=== PATIENT | female | born 2000 | race African-American/Black ===

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

== ENCOUNTER 2019-07-25 12:03 | Emergency (ER) | payer MEDICAID, OTHER ==
[~2019-07-25] VITALS: Ht 162.6 cm; Wt 59.0 kg
[2019-07-25] MEDS ORDERED: ACETAMINOPHEN 325MG TABLET PO ONE (16:00)
[2019-07-25] MEDS: KETOROLAC 30MG/ML VIAL IM ONE ×2 (16:58→18:15)
[2019-07-25 17:15] LABS: CLARITY URINE CLOUDY (CLEAR); COLOR URINE YELLOW (YELLOW); KETONES URINE 1+ (NEGATIVE); LEUKOCYTE ESTERASE URINE NEGATIVE (NEGATIVE); NITRITE URINE NEGATIVE (NEGATIVE); OCCULT BLOOD URINE NEGATIVE (NEGATIVE); PH URINE 5.5 (4.5-8.0); PROTEIN URINE NEGATIVE (NEGATIVE); UROBILINOGEN URINE 0.2 E.U./dL (0.2-1.0)
[2019-07-25] MEDS ORDERED: OSELTAMIVIR 75MG CAPSULE PO ONE (17:45)
[2019-07-25 18:21] VITALS: BP 115/57
== END 2019-07-25 18:24 | disposition home or self-care (01) ==
LOC: ER 12:03
DX: J10.1 Influenza due to other identified influenza virus with other respiratory manifestations (principal)
CPT/HCPCS: 71045; 81003; 81025; 87070; 87430; 87804; 96372; 99284; J1885

== ENCOUNTER 2019-10-05 21:03 | Inpatient (IN) | payer MEDICAID ==
[~2019-10-05] VITALS: Ht 160 cm; Wt 57.6 kg
[2019-10-05] MEDS ORDERED: ONDANSETRON HCL 4MG/2ML INJ IV STA (23:00)
[2019-10-05] MEDS ORDERED: MORPHINE SULFATE 4 MG/ML CPJ (NOT FOR IM USE) IV STA (23:00)
[2019-10-05 23:17] LABS: BASOPHILS % 0.1 % (0.0-2.0); HEMATOCRIT. 37.1 % (36.0-48.0); HEMOGLOBIN. 11.9 g/dL (12.0-16.0); LYMPHOCYTES % 11.5 % (20.0-50.0); MEAN CORPUSCULAR HEMOGLOBIN 22.9 pg (28.0-32.0); MEAN CORPUSCULAR VOLUME 71.7 fL (81.0-99.0); NEUTROPHILS % 84.4 % (40.0-76.0); PLATELET 323 x1000/uL (130-400); RED BLOOD CELL COUNT 5.17 mill/uL (4.2-5.4); RED CELL DISTRIBUTION WIDTH 15.1 % (11.6-14.6)
[2019-10-05 23:23] LABS: CHLORIDE 104 mEq/L (98-107)
[2019-10-05 23:27] LABS: CLARITY URINE CLOUDY (CLEAR); COLOR URINE YELLOW (YELLOW); KETONES URINE 3+ (NEGATIVE); LEUKOCYTE ESTERASE URINE NEGATIVE (NEGATIVE); NITRITE URINE NEGATIVE (NEGATIVE); OCCULT BLOOD URINE NEGATIVE (NEGATIVE); PROTEIN URINE TRACE (NEGATIVE); SPECIFIC GRAVITY URINE 1.029 (1.005-1.030); UROBILINOGEN URINE 0.2 E.U./dL (0.2-1.0)
[2019-10-06] MEDS ORDERED: MORPHINE SULFATE 4 MG/ML CPJ (NOT FOR IM USE) IV SCH (01:15)
[2019-10-06] MEDS ORDERED: KETOROLAC 30MG/ML VIAL IV ONE (02:15)
[2019-10-06] MEDS ORDERED: CEFAZOLIN 1000MG PREMIX 50 ML IV SCH (02:44)
[2019-10-06] MEDS ORDERED: IOHEXOL-300 100 ML BOTTLE ONE (03:04)
[2019-10-06] MEDS: LACTATED RINGERS 1,000 ML IV SCH ×3 (04:00→22:34)
[2019-10-06] MEDS ORDERED: MIDAZOLAM HCL 2 MG/2 ML VIAL ONE (06:04)
[2019-10-06] MEDS ORDERED: ROCURONIUM BROMIDE 10MG/ML VIAL 5ML IV ONE (06:04)
[2019-10-06] MEDS ORDERED: NEOSTIGMINE METHYLSULFATE 1MG/ML 10 ML VIAL ONE (06:04)
[2019-10-06] MEDS ORDERED: GLYCOPYRROLATE 0.2 MG/ML 2ML VIAL ONE (06:04)
[2019-10-06] MEDS ORDERED: FENTANYL CITRATE/PF 50MCG/ML 2ML VIAL ONE ×2 (06:04→07:16)
[2019-10-06] MEDS ORDERED: PROPOFOL 200MG/20ML VIAL IV ONE (06:04)
[2019-10-06] MEDS ORDERED: MEPERIDINE HCL/PF 25MG/ML CPJ IV PRN (06:45)
[2019-10-06] MEDS ORDERED: LABETALOL 5MG/ML SYR 20 MG/4 ML SYRINGE IV PRN (06:45)
[2019-10-06] MEDS ORDERED: HYDROMORPHONE HCL/PF 2MG/ML CPJ IV PRN ×2 (06:45→08:00)
[2019-10-06] MEDS ORDERED: ONDANSETRON HCL 4MG/2ML INJ IV PRN ×2 (06:45→09:15)
[2019-10-06] MEDS ORDERED: DEXAMETHASONE 4MG/ML 1ML VIAL ONE (07:15)
[2019-10-06] MEDS ORDERED: SKIN ADHESIVE 0.7 GM EA TOP ONE (07:27)
[2019-10-06 09:30] VITALS: BP 132/69
[2019-10-06] MEDS: MORPHINE SULFATE 4 MG/ML CPJ (NOT FOR IM USE) IV PRN ×2 (09:55→19:32)
[2019-10-06 12:00] VITALS: BP 102/56
[2019-10-06] MEDS ORDERED: INFLUENZA VIRUS VACCINE(AFLURIA) 0.5ML SYR IM ONE (15:00)
[2019-10-06 16:00] VITALS: BP 119/62
[2019-10-06 20:00] VITALS: BP 108/52
[2019-10-06] MEDS: HYDROCODONE/ACETAMINOPHEN 5/325MG TABLET PO PRN (22:33)
[2019-10-07] VITALS: BP 97/55
[2019-10-07 04:00] VITALS: BP 111/49
[2019-10-07] MEDS: MORPHINE SULFATE 4 MG/ML CPJ (NOT FOR IM USE) IV PRN (04:21)
[2019-10-07] MEDS: LACTATED RINGERS 1,000 ML IV SCH ×3 (04:25→21:45)
[2019-10-07] MEDS ORDERED: LACTATED RINGERS 1,000 ML IV SCH (05:00)
[2019-10-07] MEDS ORDERED: ALBUTEROL (0.5%) 2.5MG/0.5ML NEB HHN PRN (06:00)
[2019-10-07 07:20] LABS: BASOPHILS % 0.1 % (0.0-2.0); EOSINOPHILS % 0.4 % (0.0-5.0); HEMATOCRIT. 26.2 % (36.0-48.0); HEMOGLOBIN. 8.3 g/dL (12.0-16.0); LYMPHOCYTES % 21.9 % (20.0-50.0); MEAN CORPUSCULAR HEMOGLOBIN 22.8 pg (28.0-32.0); MEAN CORPUSCULAR VOLUME 71.5 fL (81.0-99.0); MEAN PLATELET VOLUME 8.4 fl (7.4-10.4); MONOCYTES % 8.1 % (2.0-8.0); NEUTROPHILS % 69.5 % (40.0-76.0); PLATELET 197 x1000/uL (130-400); RED BLOOD CELL COUNT 3.66 mill/uL (4.2-5.4)
[2019-10-07 08:00] VITALS: BP 112/52
[2019-10-07 12:00] VITALS: BP 113/58
[2019-10-07] MEDS: HYDROCODONE/ACETAMINOPHEN 5/325MG TABLET PO PRN ×3 (13:22→21:32)
[2019-10-07] MEDS: ALBUTEROL (0.083%) 2.5MG/3ML NEB HHN PRN ×2 (15:42→21:56)
[2019-10-07 16:00] VITALS: BP_SYST 101; BP_SYST 122; BP_DIAS 57; BP_DIAS 59
[2019-10-07 20:00] VITALS: BP 123/60
[2019-10-08] VITALS: BP 112/62
[2019-10-08 04:00] VITALS: BP 124/71
[2019-10-08] MEDS: LACTATED RINGERS 1,000 ML IV SCH ×2 (04:49→22:13)
[2019-10-08] MEDS: HYDROCODONE/ACETAMINOPHEN 5/325MG TABLET PO PRN ×4 (05:17→22:12)
[2019-10-08 08:00] VITALS: BP 114/61
[2019-10-08 12:00] VITALS: BP 112/72
[2019-10-08 16:00] VITALS: BP 115/59
[2019-10-08 20:00] VITALS: BP 109/52
[2019-10-09] VITALS: BP 106/52
[2019-10-09] MEDS: ACETAMINOPHEN 325MG TABLET PO PRN ×3 (01:08→12:47)
[2019-10-09 04:00] VITALS: BP 110/58
[2019-10-09] MEDS ORDERED: GUAIFENESIN/CODEINE 100-10MG/5ML UDC PO PRN (06:30)
[2019-10-09] MEDS ORDERED: LACTATED RINGERS 1,000 ML IV SCH (06:30)
[2019-10-09 08:00] VITALS: BP 108/59
[2019-10-09] MEDS: OSELTAMIVIR 75MG CAPSULE PO SCH ×2 (08:21→21:07)
[2019-10-09 10:10] LABS: BASOPHILS % 0.3 % (0.0-2.0); EOSINOPHILS % 0.1 % (0.0-5.0); HEMATOCRIT. 28.6 % (36.0-48.0); HEMOGLOBIN. 9.3 g/dL (12.0-16.0); LYMPHOCYTES % 7.1 % (20.0-50.0); MEAN CORPUSCULAR HEMOGLOBIN 23.4 pg (28.0-32.0); MEAN CORPUSCULAR VOLUME 71.6 fL (81.0-99.0); MEAN PLATELET VOLUME 8.6 fl (7.4-10.4); MONOCYTES % 7.4 % (2.0-8.0); NEUTROPHILS % 85.1 % (40.0-76.0); PLATELET 215 x1000/uL (130-400); RED BLOOD CELL COUNT 3.99 mill/uL (4.2-5.4); RED CELL DISTRIBUTION WIDTH 14.6 % (11.6-14.6)
[2019-10-09] MEDS: LACTATED RINGERS 1,000 ML IV SCH (11:27)
[2019-10-09 12:00] VITALS: BP 119/69
[2019-10-09 16:00] VITALS: BP 122/66
[2019-10-09] MEDS: HYDROCODONE/ACETAMINOPHEN 5/325MG TABLET PO PRN (19:17)
[2019-10-09 20:00] VITALS: BP 129/70
[2019-10-09] MEDS: GUAIFENESIN/CODEINE 200-20MG/10ML UDC PO PRN (21:08)
[2019-10-10] VITALS: BP 122/70
[2019-10-10 04:00] VITALS: BP 123/70
[2019-10-10] MEDS ORDERED: FERR325T6 MT (07:35)
[2019-10-10] MEDS ORDERED: ALBU2.5V13 HHN (07:35)
[2019-10-10] MEDS ORDERED: MULT-1116 MT (07:35)
[2019-10-10] MEDS ORDERED: IBUP-2030 MT (07:35)
[2019-10-10 07:55] VITALS: BP 121/80
[2019-10-10] MEDS: OSELTAMIVIR 75MG CAPSULE PO SCH (08:42)
[2019-10-10] MEDS: ACETAMINOPHEN 325MG TABLET PO PRN (08:42)
[2019-10-10] MEDS: GUAIFENESIN/CODEINE 200-20MG/10ML UDC PO PRN (09:46)
[2019-10-10 10:47] VITALS: BP 121/80
[2019-10-10] MEDS: HYDROCODONE/ACETAMINOPHEN 5/325MG TABLET PO PRN (10:47)
== END 2019-10-10 11:45 | disposition home or self-care (01) | DRG 513 ==
LOC: ER 21:03 → 6EST 10-06 03:20 → SUPCPDRO 10-06 03:32 → ENRESERV 10-06 07:29
PROVIDERS: ADMIT Obstetrics & Gynecology; ATTEND Obstetrics & Gynecology
PROC: 0UB10ZZ Excision of Left Ovary, Open Approach (ICD-10-PCS; principal; 2019-10-06)
PROC: 0UT00ZZ Resection of Right Ovary, Open Approach (ICD-10-PCS; 2019-10-06)
PROC: 0UT50ZZ Resection of Right Fallopian Tube, Open Approach (ICD-10-PCS; 2019-10-06)
DX: N83.53 Torsion of ovary, ovarian pedicle and fallopian tube (principal); F17.210 Nicotine dependence, cigarettes, uncomplicated; N83.292 Other ovarian cyst, left side
CPT/HCPCS: 36415; 71046; 74177; 76830; 76856; 80053; 81003; 85025; 88304; 88305; 90686; 94640; 96365; 99291; J0690; J1100; J1885; J2250; J2270; J2405; J2704; J2710; J3010; J3490; Q9967

== ENCOUNTER 2020-01-26 14:10 | Emergency (ER) | payer MEDICAID ==
[~2020-01-26 14:10] MED LIST: ALBU2.5V13 HHN; FERR325T6 MT; IBUP-2030 MT; MULT-1116 MT
== END 2020-01-26 15:07 | disposition left against medical advice (07) ==
LOC: ER 14:10
DX: R68.89 Other general symptoms and signs (principal); Z53.21 Procedure and treatment not carried out due to patient leaving prior to being seen by health care provider

== ENCOUNTER 2020-02-16 20:19 | Inpatient (IN) | payer MEDICAID ==
[~2020-02-16] VITALS: Ht 162.6 cm; Wt 58.5 kg
[2020-02-16] MEDS ORDERED: ONDANSETRON 4MG ODT PO ONE (22:30)
[2020-02-16] MEDS ORDERED: SODIUM CHLORIDE 0.9% 1,000 ML IV ONE (22:30)
[2020-02-16 22:46] LABS: CLARITY URINE CLOUDY (CLEAR); COLOR URINE YELLOW (YELLOW); KETONES URINE NEGATIVE (NEGATIVE); LEUKOCYTE ESTERASE URINE 3+ (NEGATIVE); NITRITE URINE NEGATIVE (NEGATIVE); OCCULT BLOOD URINE NEGATIVE (NEGATIVE); PH URINE 6.5 (4.5-8.0); PROTEIN URINE NEGATIVE (NEGATIVE); SPECIFIC GRAVITY URINE 1.014 (1.005-1.030); UROBILINOGEN URINE 0.2 E.U./dL (0.2-1.0)
[2020-02-16 23:11] LABS: BASOPHILS % 0.3 % (0.0-2.0); EOSINOPHILS % 0.5 % (0.0-5.0); HEMATOCRIT. 31.8 % (36.0-48.0); HEMOGLOBIN. 10.2 g/dL (12.0-16.0); LYMPHOCYTES % 21.5 % (20.0-50.0); MEAN CORPUSCULAR HEMOGLOBIN 22.9 pg (28.0-32.0); MEAN CORPUSCULAR VOLUME 71.4 fL (81.0-99.0); MONOCYTES % 5.2 % (2.0-8.0); NEUTROPHILS % 72.5 % (40.0-76.0); PLATELET 279 x1000/uL (130-400); RED BLOOD CELL COUNT 4.45 mill/uL (4.2-5.4); RED CELL DISTRIBUTION WIDTH 15.7 % (11.6-14.6)
[2020-02-16 23:15] LABS: CHLORIDE 107 mEq/L (98-107)
[2020-02-16 23:42] LABS: B-HCG QUANTITATIVE 46285 mIU/mL (<3)
[2020-02-17] MEDS: ACETAMINOPHEN 325MG TABLET PO PRN ×3 (00:25→11:54)
[2020-02-17] MEDS ORDERED: CEFTRIAXONE 1 G PREMIX 50 ML IV NR (01:00)
[2020-02-17] MEDS ORDERED: HYDROCODONE/ACETAMINOPHEN 5/325MG TABLET PO NR (01:00)
[2020-02-17] MEDS ORDERED: ACETAMINOPHEN 325MG TABLET PO ONE (05:15)
[2020-02-17 08:00] VITALS: BP 96/47
[2020-02-17] MEDS ORDERED: ONDANSETRON HCL 4MG/2ML INJ IV PRN (10:00)
[2020-02-17 10:44] VITALS: BP 96/47
[2020-02-17 12:00] VITALS: BP 96/40
[2020-02-17] MEDS ORDERED: HYDROCODONE/ACETAMINOPHEN 5/325MG TABLET PO PRN (12:00)
[2020-02-17] MEDS ORDERED: FERR325T6 MT (12:43)
[2020-02-17] MEDS ORDERED: DOXY25TA61 MT (12:43)
[2020-02-17] MEDS ORDERED: PYRI25TA4 MT (12:43)
[2020-02-17 15:23] LABS: *AMPHETAMINES SCREEN URINE NEGATIVE (NEGATIVE); *BARBITURATES SCREEN URINE NEGATIVE (NEGATIVE); *BENZODIAZEPINES SCREEN URINE NEGATIVE (NEGATIVE); *COCAINE SCREEN URINE NEGATIVE (NEGATIVE); METHADONE URINE SCREEN NEGATIVE (NEGATIVE)
[2020-02-17 15:24] LABS: PHENCYCLIDINE URINE SCREEN NEGATIVE (NEGATIVE)
[2020-02-17 15:30] LABS: CANNABINOID URINE SCREEN PRESUMTIVE POSITIVE (NEGATIVE); OPIATES URINE SCREEN PRESUMTIVE POSITIVE (NEGATIVE)
[2020-02-17 16:00] VITALS: BP 86/33
[2020-02-17 20:00] VITALS: BP 97/48
[2020-02-17] MEDS: CEFTRIAXONE 1 G PREMIX 50 ML IV SCH (20:55)
[2020-02-18] VITALS: BP 93/45
[2020-02-18] MEDS: ACETAMINOPHEN 325MG TABLET PO PRN ×2 (02:17→14:01)
[2020-02-18 04:00] VITALS: BP 86/42
[2020-02-18 12:00] VITALS: BP 103/54
[2020-02-18 16:00] VITALS: BP 98/34
[2020-02-18 20:00] VITALS: BP 104/48
[2020-02-18] MEDS: CEFTRIAXONE 1 G PREMIX 50 ML IV SCH (21:46)
[2020-02-19 00:23] VITALS: BP 112/69
[2020-02-19 04:00] VITALS: BP 101/51
[2020-02-19 07:04] LABS: BASOPHILS % 0.5 % (0.0-2.0); EOSINOPHILS % 1.3 % (0.0-5.0); HEMATOCRIT. 28.1 % (36.0-48.0); HEMOGLOBIN. 9.4 g/dL (12.0-16.0); MEAN CORPUSCULAR HEMOGLOBIN 23.9 pg (28.0-32.0); MEAN CORPUSCULAR VOLUME 71.3 fL (81.0-99.0); MEAN PLATELET VOLUME 8.3 fl (7.4-10.4); MONOCYTES % 5.9 % (2.0-8.0); NEUTROPHILS % 66.3 % (40.0-76.0); PLATELET 240 x1000/uL (130-400); RED BLOOD CELL COUNT 3.93 mill/uL (4.2-5.4); RED CELL DISTRIBUTION WIDTH 16.1 % (11.6-14.6)
[2020-02-19 08:00] VITALS: BP 92/40
[2020-02-19 08:37] LABS: CHLORIDE 109 mEq/L (98-107)
[2020-02-19 12:00] VITALS: BP 92/41
[2020-02-19 13:50] VITALS: BP 92/41
== END 2020-02-19 14:24 | disposition home or self-care (01) | DRG 566 ==
LOC: ER 20:19 → 6EST 02-17 05:40 → EDBEDREQ 02-17 06:46 → ENRESERV 02-17 07:31
PROVIDERS: ADMIT Internal Medicine; ATTEND Internal Medicine
DX: O23.02 Infections of kidney in pregnancy, second trimester (principal); O26.52 Maternal hypotension syndrome, second trimester; O26.892 Other specified pregnancy related conditions, second trimester; O25.12 Malnutrition in pregnancy, second trimester; O99.322 Drug use complicating pregnancy, second trimester; O23.42 Unspecified infection of urinary tract in pregnancy, second trimester; F12.10 Cannabis abuse, uncomplicated; E87.1 Hypo-osmolality and hyponatremia; Z79.1 Long term (current) use of non-steroidal anti-inflammatories (NSAID); Z79.899 Other long term (current) drug therapy; Z71.51 Drug abuse counseling and surveillance of drug abuser; Z3A.15 15 weeks gestation of pregnancy
CPT/HCPCS: 36415; 76805; 80048; 80053; 80305; 81003; 84702; 85025; 86850; 86900; 87077; 87186; 96365; 99285; J0696; J7030; Q0162

== ENCOUNTER 2020-06-12 12:31 | Observation (INO) | payer MEDICAID ==
[~2020-06-12] VITALS: Ht 160 cm; Wt 66.2 kg
[~2020-06-12 12:31] MED LIST changes: +DOXY25TA61 MT; +PYRI25TA4 MT
[2020-06-12] MEDS ORDERED: PREN1TAB78 MT (13:13)
== END 2020-06-12 14:45 | disposition home or self-care (01) ==
LOC: 8 EST LDRP 12:31
PROVIDERS: ADMIT Obstetrics & Gynecology; ATTEND Obstetrics & Gynecology
DX: O26.893 Other specified pregnancy related conditions, third trimester (principal); R10.9 Unspecified abdominal pain; Z3A.31 31 weeks gestation of pregnancy
CPT/HCPCS: 59025; 76805; 76818; G0378; 99281

== ENCOUNTER 2021-07-01 17:24 | Emergency (ER) | payer MEDICAID ==
[~2021-07-01] VITALS: Ht 162.6 cm; Wt 58.0 kg
[~2021-07-01 17:24] MED LIST changes: +PREN1TAB78 MT
[2021-07-01] MEDS ORDERED: TOPUD MT (17:38)
[2021-07-01] MEDS ORDERED: AMOX-494 MT (17:38)
[2021-07-01] MEDS ORDERED: AMOXICILLIN 500 MG CAPSULE PO ONE (17:45)
[2021-07-01] MEDS ORDERED: ACETAMINOPHEN 325MG TABLET PO ONE (17:45)
[2021-07-01 18:25] VITALS: BP 128/85
== END 2021-07-01 18:40 | disposition home or self-care (01) ==
LOC: ER 17:24
DX: J02.0 Streptococcal pharyngitis (principal); Z79.899 Other long term (current) drug therapy
CPT/HCPCS: 87070; 87430; 99283

== ENCOUNTER 2022-06-20 09:51 | Emergency (ER) | payer MEDICAID ==
[~2022-06-20] VITALS: Ht 160 cm; Wt 57.0 kg
[~2022-06-20 09:51] MED LIST changes: +AMOX-494 MT; +TOPUD MT
[2022-06-20 10:04] VITALS: BP 111/58
[2022-06-20] MEDS ORDERED: GUAI-450 MT (12:28)
== END 2022-06-20 12:51 | disposition home or self-care (01) ==
LOC: ER 09:51
DX: J06.9 Acute upper respiratory infection, unspecified (principal); Z20.822 Contact with and (suspected) exposure to COVID-19
CPT/HCPCS: 81025; 87426; 87804; 99283; C9803

== ENCOUNTER 2023-09-26 10:49 | Emergency (ER) | payer MEDICAID ==
[~2023-09-26] VITALS: Ht 165.1 cm; Wt 61.0 kg
[~2023-09-26 10:49] MED LIST changes: +FLUC150T46 MT; +GUAI-450 MT
[2023-09-26 10:53] VITALS: BP 112/53; PULSE 81; RESP 20; TEMP 98.2; O2SAT 98
== END 2023-09-26 11:48 | disposition left against medical advice (07) ==
LOC: ER 10:49
DX: R11.2 Nausea with vomiting, unspecified (principal); Z53.21 Procedure and treatment not carried out due to patient leaving prior to being seen by health care provider
CPT/HCPCS: 99281

== ENCOUNTER 2023-10-01 09:05 | Emergency (ER) | payer MEDICAID ==
[~2023-10-01] VITALS: Ht 157.5 cm; Wt 60.0 kg
[2023-10-01 09:26] VITALS: BP 99/54; PULSE 74; RESP 16; TEMP 98.4; O2SAT 100
[2023-10-01] MEDS ORDERED: ONDANSETRON HCL 4MG/2ML INJ IV ONE (10:00)
[2023-10-01 10:36] LABS: BASOPHILS % 0.5 % (0.0-2.0); DIFFERENTIAL COMMENT 0; EOSINOPHILS % 1.7 % (0.0-5.0); HEMATOCRIT. 31.3 % (36.0-48.0); HEMOGLOBIN. 10.1 g/dL (12.0-16.0); LYMPHOCYTES % 16.9 % (20.0-50.0); MEAN CORPUSCULAR HEMOGLOBIN 23.4 pg (28.0-32.0); MEAN CORPUSCULAR HGB CONC 32.1 g/dL (31.0-37.0); MEAN CORPUSCULAR VOLUME 73.1 fL (81.0-99.0); MEAN PLATELET VOLUME 7.9 fl (7.4-10.4); MONOCYTES % 5.2 % (2.0-8.0); NEUTROPHILS % 75.7 % (40.0-76.0); PLATELET 293 x1000/uL (130-400); RED BLOOD CELL COUNT 4.29 mill/uL (4.2-5.4); RED CELL DISTRIBUTION WIDTH 14.7 % (11.6-14.6); WHITE BLOOD COUNT 9.1 x1000/uL (4.5-11.0)
[2023-10-01] MEDS: SODIUM CHLORIDE 0.9% 1,000 ML IV ONE (10:41)
[2023-10-01 10:52] LABS: ALANINE AMINOTRANSFERASE 11 IU/L (10-49); ASPARTATE AMINOTRANSFERASE 13 IU/L (<34); B-HCG QUANTITATIVE 79263 mIU/mL (<3); BILIRUBIN TOTAL 0.5 mg/dL (0.1-1.0); CALCIUM 8.8 mg/dL (8.7-10.4); CARBON DIOXIDE 24 mEq/L (21-32); CHLORIDE 105 mEq/L (98-107); CREATININE 0.6 mg/dL (0.6-1.0); GLUCOSE 90 mg/dL (70-105); POTASSIUM 3.9 mEq/L (3.5-5.1); PROTEIN TOTAL 6.9 g/dL (6.0-8.3); SODIUM 136 mEq/L (136-145); UREA NITROGEN BLOOD 9 mg/dL (9-23)
[2023-10-01 11:18] LABS: BETA HYDROXYBUTYRATE 0.1 mMol/L (0.0-0.3)
[2023-10-01] MEDS ORDERED: DOXY25TA61 PO (11:34)
[2023-10-01] MEDS ORDERED: ONDA4TAB11 PO (11:34)
[2023-10-01] MEDS ORDERED: PYRI25TA4 PO (11:34)
== END 2023-10-01 12:50 | disposition home or self-care (01) ==
LOC: ER 09:05
DX: O26.91 Pregnancy related conditions, unspecified, first trimester (principal); R11.0 Nausea; Z3A.01 Less than 8 weeks gestation of pregnancy
CPT/HCPCS: 80053; 82010; 84702; 85025; 36415; 96360; 99283; J2405; J7030; Z7610 ×2

== ENCOUNTER 2024-01-24 16:22 | Emergency (ER) | payer MEDICAID ==
[~2024-01-24] VITALS: Ht 162.6 cm; Wt 60.8 kg
[~2024-01-24 16:22] MED LIST changes: +DOXY25TA61 PO; +ONDA4TAB11 PO; +PYRI25TA4 PO
[2024-01-24 16:31] VITALS: O2SAT 100
[2024-01-24 17:11] LABS: BASOPHILS % 0.3 % (0.0-2.0); DIFFERENTIAL COMMENT 0; EOSINOPHILS % 0.4 % (0.0-5.0); HEMATOCRIT. 31.4 % (36.0-48.0); LYMPHOCYTES % 10.8 % (20.0-50.0); MEAN CORPUSCULAR HEMOGLOBIN 23.4 pg (28.0-32.0); MEAN CORPUSCULAR HGB CONC 31.9 g/dL (31.0-37.0); MEAN CORPUSCULAR VOLUME 73.3 fL (81.0-99.0); MEAN PLATELET VOLUME 8.4 fl (7.4-10.4); NEUTROPHILS % 83.5 % (40.0-76.0); PLATELET 279 x1000/uL (130-400); RED BLOOD CELL COUNT 4.28 mill/uL (4.2-5.4); RED CELL DISTRIBUTION WIDTH 14.2 % (11.6-14.6); WHITE BLOOD COUNT 10.4 x1000/uL (4.5-11.0)
[2024-01-24] MEDS: FAMOTIDINE 20MG/2ML VIAL IV STA (17:15)
[2024-01-24] MEDS: METOCLOPRAMIDE HCL 10MG/2ML VIAL IV STA (17:15)
[2024-01-24 17:26] LABS: D-DIMER 0.78 mg/L FEU (<0.50); INR 0.9; PARTIAL THROMBOPLASTIN TIME 26.5 sec (23.4-31.0); PROTHROMBIN TIME 10.4 sec (9.6-11.0)
[2024-01-24 20:44] LABS: CARBON DIOXIDE 19 mEq/L (21-32); CHLORIDE 106 mEq/L (98-107); CREATININE 0.6 mg/dL (0.6-1.0); GLUCOSE 108 mg/dL (70-105); POTASSIUM 3.4 mEq/L (3.5-5.1); SODIUM 135 mEq/L (136-145); UREA NITROGEN BLOOD 7 mg/dL (9-23)
[2024-01-24 20:45] LABS: ALANINE AMINOTRANSFERASE 9 IU/L (10-49); ASPARTATE AMINOTRANSFERASE 14 IU/L (<34); BILIRUBIN TOTAL 0.5 mg/dL (0.1-1.0); CALCIUM 9.3 mg/dL (8.7-10.4); PROTEIN TOTAL 6.6 g/dL (6.0-8.3)
[2024-01-24 20:51] VITALS: BP 112/56; PULSE 83; RESP 18; TEMP 98.5
== END 2024-01-24 21:12 | disposition short-term general hospital (02) ==
LOC: ER 16:22
DX: O26.892 Other specified pregnancy related conditions, second trimester (principal); O99.512 Diseases of the respiratory system complicating pregnancy, second trimester; D64.9 Anemia, unspecified; Z3A.22 22 weeks gestation of pregnancy; Z79.899 Other long term (current) drug therapy
CPT/HCPCS: 80053; 82962; 85025; 85379; 85610; 85730; 86850; 86900; 86901; 86706; 86592; 36415; 71045; 76805; 93005; 96374; 96375; 99285; J3490; J2765; Z7610

== ENCOUNTER 2025-04-23 11:46 | Emergency (ER) | payer MEDICAID ==
[~2025-04-23] VITALS: Ht 165.1 cm; Wt 64.0 kg
[~2025-04-23 11:46] MED LIST changes: +ONDA-239 PO; -ONDA4TAB11 PO
[2025-04-23 12:05] VITALS: O2SAT 99
[2025-04-23 12:15] VITALS: BP 108/58; PULSE 91; RESP 20; TEMP 36.8; O2SAT 100
[2025-04-23] MEDS ORDERED: ACYC-58 MT (13:17)
[2025-04-23 14:14] LABS: CLARITY URINE CLEAR (CLEAR); COLOR URINE YELLOW (YELLOW); GLUCOSE URINE NEGATIVE (NEGATIVE); KETONES URINE TRACE (NEGATIVE); LEUKOCYTE ESTERASE URINE NEGATIVE (NEGATIVE); NITRITE URINE NEGATIVE (NEGATIVE); OCCULT BLOOD URINE NEGATIVE (NEGATIVE); PH URINE 5.5 (4.5-8.0); PROTEIN URINE NEGATIVE (NEGATIVE); SPECIFIC GRAVITY URINE 1.021 (1.005-1.030); UROBILINOGEN URINE 0.2 E.U./dL (0.2-1.0)
[2025-04-25 17:07] LABS: CHLAMYDIA TRACHOMATIS NAA Negative (Negative); NEISSERIA GONORRHOEAE NAA Negative (Negative)
== END 2025-04-23 14:02 | disposition home or self-care (01) ==
LOC: ER 11:46
DX: J45.909 Unspecified asthma, uncomplicated (principal); Z79.624 Long term (current) use of inhibitors of nucleotide synthesis; F10.90 Alcohol use, unspecified, uncomplicated; Z98.890 Other specified postprocedural states
CPT/HCPCS: 36415; 81003; 81025; 86592; 87491; 87591; 99283

== ENCOUNTER 2025-07-24 08:47 | Emergency (ER) | payer MEDICAID ==
[~2025-07-24] VITALS: Ht 162.6 cm; Wt 58.0 kg
[~2025-07-24 08:47] MED LIST changes: +ACYC-58 MT
[2025-07-24 08:49] VITALS: O2SAT 100
[2025-07-24 08:55] VITALS: BP 105/54; PULSE 94; RESP 14; TEMP 37.2; O2SAT 100
[2025-07-24] MEDS ORDERED: BENZ1LOZ73 MT (09:11)
[2025-07-24] MEDS ORDERED: PHEN20SP MT (09:11)
[2025-07-24] MEDS ORDERED: AMOX-494 MT (09:11)
[2025-07-24] MEDS: AMOXICILLIN 500MG CAPSULE PO ONE (09:18)
== END 2025-07-24 09:20 | disposition home or self-care (01) ==
LOC: ER 08:47
DX: J02.8 Acute pharyngitis due to other specified organisms (principal); J45.909 Unspecified asthma, uncomplicated; D64.9 Anemia, unspecified; Z79.899 Other long term (current) drug therapy
CPT/HCPCS: 99283